=== PATIENT | male | born 1975 | race Caucasian/White ===

== ENCOUNTER 2018-10-23 15:27 | Inpatient (IN) ==
[2018-10-23 16:23] LABS: Basophils % 0.1 %; Eosinophils # 0.1 K/mcL (0.0-0.6); Eosinophils % 1.2 %; Hematocrit 37.9 % (37.5-50.1); Hemoglobin 12.4 g/dL (12.9-16.9); Immature Granulocytes % 0.1 % (0-4); Lymphocytes # 2.8 K/mcL (0.6-4.6); Lymphocytes % 41.4 %; Mean Corpuscular HGB Conc 32.7 g/dL (31.6-35.5); Mean Corpuscular Volume 97.9 fL (83.0-100.0); Mean Platelet Volume 9.5 fL (9.4-12.4); Monocytes # 0.6 K/mcL (0.0-1.3); Monocytes % 9.2 %; Neutrophils # 3.3 K/mcL (1.6-8.9); Platelet Count 247 K/mcL (140-400); Red Blood Count 3.87 M/mcL (4.19-5.50); Red Cell Distribution Width 13.2 % (11.5-14.5); White Blood Count 6.8 K/mcL (4.3-11.1)
[2018-10-23 16:41] LABS: Bilirubin,Urine Negative (Negative); Blood,Urine Negative (Negative); Clarity,Urine Clear (Clear); Color,Urine Yellow (Yellow); Glucose,Urine (UA) Normal (Normal); Ketones,Urine Negative (Negative); Leukocyte Esterase,Urine Negative (Negative); Nitrite,Urine Negative (Negative); PH,Urine 7.5 pH Units (5.0-8.0); Protein,Urine Negative (Neg-Trace); Specific Gravity,Urine 1.019 (1.010-1.025); Urobilinogen,Urine Normal (Normal)
[2018-10-23 16:45] LABS: Acetaminophen < 10 mcg/mL (10-20); BUN/Creatinine Ratio 14 (6-26); Blood Urea Nitrogen 12 mg/dL (6-20); Calcium 8.8 mg/dL (8.6-10.3); Carbon Dioxide 28 mEq/L (23-29); Chloride 107 mEq/L (98-107); Ethanol < 10 mg/dL (Less than 10); Glucose 87 mg/dL (70-105); Osmolality,Calculated 289 (280-300); Potassium 4.2 mEq/L (3.5-5.1); Salicylate < 2.5 mg/dL (15.0-30.0); Sodium 140 mEq/L (136-145); eGFR For African Americans > 60 (> 60); eGFR For Non-African Americans > 60 (> 60)
[2018-10-23 16:50] LABS: Amphetamine Screen,Urine Negative ng/mL (Cutoff=1000); Barbiturate Screen,Urine Negative ng/mL (Cutoff=200); Benzodiazepines Screen,Urine Negative ng/mL (Cutoff=200); Cannabinoid Screen,Urine Negative ng/mL (Cutoff = 50); Cocaine Screen,Urine Negative ng/mL (Cutoff= 300); Opiate Screen,Urine Negative ng/mL (Cutoff=300); Phencyclidine Screen,Urine Negative ng/mL (Cutoff=25)
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
--- NOTE | 2018-10-23 17:21 | Emergency Department Note ---
Disposition Clinical Impression: Methamphetamine abuse, Auditory hallucination, Visual hallucination Disposition: Admitted As Inpatient Condition: Good Time of Disposition: 17:05 General Adult HPI - General Chief complaint: ED Medical Clearance Stated complaint: Psych / Med Clearance Time Seen by Provider: 10/23/18 15:57 Source: patient Mode of arrival: ambulatory Limitations: no limitations - History of Present Illness Pain Scale: 0 - Related Data Home Medications Medication Instructions Recorded Confirmed Cholecalciferol (Vitamin D3) 1,000 units PO DAILY 10/23/18 10/23/18 [Vitamin D3] Divalproex (12 HR) [Depakote (12 250 mg PO TID 10/23/18 10/23/18 HR)] Ibuprofen 800 mg PO TID PRN 10/23/18 10/23/18 OLANZapine [Zyprexa] 5 mg PO DAILY 10/23/18 10/23/18 Propranolol [Inderal] 20 mg PO DAILY 10/23/18 10/23/18 rOPINIRole [Requip] 0.5 mg PO HS 10/23/18 10/23/18 Allergies Allergy/AdvReac Type Severity Reaction Status Date / Time No Known Allergies Allergy Verified 10/23/18 19:58 Constitutional: Denies: fever Cardiovascular: Denies: chest pain Respiratory: Denies: dyspnea Gastrointestinal: Denies: abdominal pain, nausea, vomiting, diarrhea Musculoskeletal: Denies: back pain Neurological: Denies: weakness Psychiatric: Reports: auditory hallucinations, visual hallucinations Past Medical History - Past Medical History Medical history: Reports: no medical history Psychiatric history: Reports: other - Social History Smoking Status: Current every day smoker Alcohol use: Reports: none Drug use: Reports: methamphetamine Physical Exam - General Limitations: no limitations General appearance: alert, in no apparent distress Course Vital Signs Temperature 97.6 F 10/23/18 15:30 Pulse Rate 94 10/23/18 15:30 Respiratory Rate 16 10/23/18 15:30 Blood Pressure 125/88 10/23/18 15:30 O2 Sat by Pulse Oximetry 100 10/23/18 15:30 Temperature 98.2 F 10/24/18 19:51 Pulse Rate 122 10/24/18 19:51 Respiratory Rate 16 10/24/18 19:51 Blood Pressure 136/75 10/24/18 19:51 O2 Sat by Pulse Oximetry 98 10/24/18 19:51 Oxygen Delivery Oxygen Delivery Room Air Medical Decision Making - Lab Data Result diagrams: 10/23/18 16:09 10/23/18 16:09 Lab Results 10/23/18 10/23/18 10/23/18 Range/Units 16:09 16:09 16:28 WBC 6.8 (4.3-11.1) K/mcL RBC 3.87 L (4.19-5.50) M/mcL Hgb 12.4 L (12.9-16.9) g/dL Hct 37.9 (37.5-50.1) % MCV 97.9 (83.0-100.0) fL MCH 32.0 (28.0-33.3) pg MCHC 32.7 (31.6-35.5) g/dL RDW 13.2 (11.5-14.5) % Plt Count 247 (140-400) K/mcL MPV 9.5 (9.4-12.4) fL Immature Gran % 0.1 (0-4) % Seg Neutrophils % 48.0 % Lymphocytes % 41.4 % Monocytes % 9.2 % Eosinophils % 1.2 % Basophils % 0.1 % Neutrophils # 3.3 (1.6-8.9) K/mcL Lymphocytes # 2.8 (0.6-4.6) K/mcL Monocytes # 0.6 (0.0-1.3) K/mcL Eosinophils # 0.1 (0.0-0.6) K/mcL Basophils # 0.0 (0.0-0.2) K/mcL Sodium 140 (136-145) mEq/L Potassium 4.2 (3.5-5.1) mEq/L Chloride 107 (98-107) mEq/L Carbon Dioxide 28 (23-29) mEq/L BUN 12 (6-20) mg/dL Creatinine 0.88 (0.70-1.30) mg/dL Est GFR ( Amer) > 60 (> 60) Est GFR (Non-Af Amer) > 60 (> 60) BUN/Creatinine Ratio 14 (6-26) Glucose 87 (70-105) mg/dL Calculated Osmolality 289 (280-300) Calcium 8.8 (8.6-10.3) mg/dL Urine Color Yellow (Yellow) Urine Clarity Clear (Clear) Urine pH 7.5 (5.0-8.0) pH Units Ur Specific [place] 1.019 (1.010-1.025) Urine Protein Negative (Neg-Trace) mg/dL Urine Glucose (UA) Normal (Normal) mg/dL Urine Ketones Negative (Negative) mg/dL Urine Blood Negative (Negative) Urine Nitrite Negative (Negative) Urine Bilirubin Negative (Negative) Urine Urobilinogen Normal (Normal) mg/dL Ur Leukocyte Esterase Negative (Negative) Salicylates < 2.5 L (15.0-30.0) mg/dL Urine Opiates Screen (Cacjzy=213) ng/mL Ur Buprenorphine Scrn (Cutoff=5) ng/mL Acetaminophen < 10 L (10-20) mcg/mL Ur Barbiturates Screen (Kumfir=682) ng/mL Ur Phencyclidine Scrn (Cutoff=25) ng/mL Ur Amphetamines Screen (Fiscek=0139) ng/mL U Benzodiazepines Scrn (Buxckf=736) ng/mL Urine Cocaine Screen (Cutoff= 300) ng/mL U Marijuana (THC) Screen (Cutoff = 50) ng/mL Ur Drug Screen Interp Ethyl Alcohol < 10 (Less than 10) mg/dL 10/23/18 Range/Units 16:28 WBC (4.3-11.1) K/mcL RBC (4.19-5.50) M/mcL Hgb (12.9-16.9) g/dL Hct (37.5-50.1) % MCV (83.0-100.0) fL MCH (28.0-33.3) pg MCHC (31.6-35.5) g/dL RDW (11.5-14.5) % Plt Count (140-400) K/mcL MPV (9.4-12.4) fL Immature Gran % (0-4) % Seg Neutrophils % % Lymphocytes % % Monocytes % % Eosinophils % % Basophils % % Neutrophils # (1.6-8.9) K/mcL Lymphocytes # (0.6-4.6) K/mcL Monocytes # (0.0-1.3) K/mcL Eosinophils # (0.0-0.6) K/mcL Basophils # (0.0-0.2) K/mcL Sodium (136-145) mEq/L Potassium (3.5-5.1) mEq/L Chloride (98-107) mEq/L Carbon Dioxide (23-29) mEq/L BUN (6-20) mg/dL Creatinine (0.70-1.30) mg/dL Est GFR ( Amer) (> 60) Est GFR (Non-Af Amer) (> 60) BUN/Creatinine Ratio (6-26) Glucose (70-105) mg/dL Calculated Osmolality (280-300) Calcium (8.6-10.3) mg/dL Urine Color (Yellow) Urine Clarity (Clear) Urine pH (5.0-8.0) pH Units Ur Specific [place] (1.010-1.025) Urine Protein (Neg-Trace) mg/dL Urine Glucose (UA) (Normal) mg/dL Urine Ketones (Negative) mg/dL Urine Blood (Negative) Urine Nitrite (Negative) Urine Bilirubin (Negative) Urine Urobilinogen (Normal) mg/dL Ur Leukocyte Esterase (Negative) Salicylates (15.0-30.0) mg/dL Urine Opiates Screen Negative (Ondupv=179) ng/mL Ur Buprenorphine Scrn Negative (Cutoff=5) ng/mL Acetaminophen (10-20) mcg/mL Ur Barbiturates Screen Negative (Hzizhm=820) ng/mL Ur Phencyclidine Scrn Negative (Cutoff=25) ng/mL Ur Amphetamines Screen Negative (Arapvt=4145) ng/mL U Benzodiazepines Scrn Negative (Dgurqs=965) ng/mL Urine Cocaine Screen Negative (Cutoff= 300) ng/mL U Marijuana (THC) Screen Negative (Cutoff = 50) ng/mL Ur Drug Screen Interp See Below Ethyl Alcohol (Less than 10) mg/dL Attestation Statement - Attestation Attestation: I examined this patient and my medical decision-making was reviewed with the Resident Physician. I agree with the documented findings, disposition and treatment plan as described except to the extent set forth below. Patient for [id number] [place] presents to emergency department with chief complaint of visual hallucinations the patient reports that he has not used meth in several days states is been isolated and is concerned that he see an thanks. Exam patient awake alert no acute distress patient does report that he is having visual hallucinations Medical decision management visual medical clear to evaluate about 1 and the patient accepted on a
[2018-10-23] MEDS ORDERED: Ibuprofen 400 MG TABLET PO PRN (17:48)
[2018-10-23] MEDS ORDERED: Mag Hydrox/Al Hydrox/Simeth 30 ML UDC PO PRN (17:48)
[2018-10-23] MEDS ORDERED: *HR* LORazepam 1 MG TABLET PO PRN (17:48)
[2018-10-23] MEDS ORDERED: Haloperidol Lactate 5 MG/ML VIAL IM PRN (17:48)
[2018-10-23] MEDS ORDERED: *HR* LORazepam 2 MG/ML VIAL IM PRN (17:48)
[2018-10-23] MEDS ORDERED: MOM Conc 10 ML UD.LIQ PO PRN (17:48)
[2018-10-23] MEDS ORDERED: Tdap (Boostrix) Vaccine 0.5 ML SYRINGE IM ONE (18:15)
[2018-10-24] MEDS: Nicotine 2 MG GUM BC PRN ×2 (08:46→17:37)
--- NOTE | 2018-10-24 13:31 | Psychiatry History & Physical ---
Date of Encounter: 10/24/18 Time of Encounter: 13:29 History of Present Illness Patient Stated Chief Complaint: Auditory hallucinations Medicare Admission Attestation: For traditional Medicare patients the provided hospital inpatient services are reasonable and necessary and in the case of services not specified as inpatient-only under 42 CFR 419.22 (n), that they are appropriately provided as inpatient services in accordance 42 CFR 412.3. For Critical [facility] the patient may reasonably be expected to be discharged or transferred to a hospital within 96 hours after admission to the Critical Access Hospital. Admitted From: Emergency Dept Plans for Post Hospital Care: Home History of Present Illness: Mr. Lee is a 43 year old male who presented to the ED complaining of aud itory hallucinations. He reports that he "destroyed his house" looking for the source of these voices so that he could "make them stop", as they were taunting him. He reports that he has been treated for depression in the past, and recently had a cheek swab performed, which showed that he had "the gene for bipolar disorder", which prompted his outpatient provider to start him on a medication for that disorder. He denies any history of psychiatric hospitalization. He reports that his mother has tried to get him to talk to a psychiatrist in the past, but states that he has not wanted to do that. Patient does have a history of IV methamphetamine use, and estimates that it has been ~10 days since he last used. He reports that he has had auditory hallucinations in the past, but does not notice a correlation with his drug use. He states that he has "heard voices" since he was a child, noting that when he was a kid, he always felt like the voices were "talking about me". He reports occasional visual hallucinations, but denies any tactile hallucinations. He denies thoughts of self-harm or suicide. He denies homicidal ideation, but notes that he did want to hurt the voices to make them stop. Family history is significant for completed suicide attempts in his father and uncle, though he states he is unaware of any official psychiatric diagnoses. Past Med Surg Social Fam HX - Past Medical History Medical history: no medical history - Past Psychiatric History Family History of Suicide: Completed Family Suicide History Details: Father and uncle both by suicide via gun. - Social History Smoking Status: Current every day smoker Smokeless Tobacco Status: No Alcohol use: none Drug use: methamphetamine - Family History Mother Name: Indu Mason Living Status: Still Living Hx Family Cardiac Disorders: No Hx Family Respiratory Disorders: No Hx Family Cancer: No Hx Family GI Disorders: No Hx Family Genitourinary Disorders: No Hx Family Endocrine Disorder: No Hx Family Musculoskeletal Disorders: No Hx Family Neuromuscular Disorders: No Hx Family Neurologic Disorders: No Hx Family HEENT Disorders: No Hx Family Autoimmune Disorders: No Hx Family Reproductive Disorders: No Hx Family Psychosocial Disorders: No Hx Family Medical Disorders: No Medications & Allergies Cholecalciferol (Vitamin D3) [Vitamin D3] 1,000 units PO DAILY 10/23/18 [History] Divalproex (12 HR) [Depakote (12 HR)] 250 mg PO TID 10/23/18 [History] Ibuprofen 800 mg PO TID PRN 10/23/18 [History] OLANZapine [Zyprexa] 5 mg PO DAILY 10/23/18 [History] Propranolol [Inderal] 20 mg PO DAILY 10/23/18 [History] rOPINIRole [Requip] 0.5 mg PO HS 10/23/18 [History] Allergy/AdvReac Type Severity Reaction Status Date / Time No Known Allergies Allergy Verified 10/23/18 19:58 Review of Systems Constitutional: Denies: fever, chills, weakness, weight change Cardiovascular: Denies: chest pain Respiratory: Denies: dyspnea Gastrointestinal: Denies: abdominal pain Musculoskeletal: Reports: joint pain (secondary to "destroying" his home) Integumentary: Denies: pruritus Neurological: Denies: headache, weakness, numbness Psychiatric: Reports: auditory hallucinations, visual hallucinations. Denies: suicidal ideation, homicidal ideation Exam - HEENT Head exam IM: Present: atraumatic, normal inspection, normocephalic Eye exam IM: Present: EOMI, normal appearance, PERRL ENT exam IM: Present: normal exam - Neurological Neurological exam: Present: CN II-XII intact (grossly intact on observation) - Respiratory Respiratory exam IM: Absent: accessory muscle use, respiratory distress - Extremities Extremities exam IM: Present: full ROM - Skin Skin exam IM: Present: abrasion (left elbow), dry, warm - Constitutional Vitals: Temp Pulse Resp BP Pulse Ox 98.4 F 107 20 133/83 100 10/24/18 09:00 10/24/18 09:00 10/24/18 09:00 10/24/18 09:00 10/24/18 09:00 General appearance: age & developmentally appropriate, well-nourished, average - Musculoskeletal Strength & Tone: normal for patient (grossly normal on evaluation) - Psychiatric Patient Orientation: Yes Person, Yes Time, Yes Place Level of alertness: Alert, Follows commands Behavior: calm, cooperative Psychomotor activity: Normal Eye Contact: Fleeting Contact Affect description: flat Speech Volume: Soft/Quiet Speech pattern: normal rate, mumbled Language & Vocabulary: consistent with education Thought Process: Logical, Linear Thought Content: No Suicidal ideation, No Homicidal ideation, No Overt delusions Perceptual Disturbances: No Auditory hallucinations, No Visual hallucinations, No Tactile hallucinations Attention Span Ability: Capable of Focused Attention Memory Description: Grossly Intact Patient Reliability: Questionable Historian Results - Drug Levels and Toxicology Drug Levels and Toxicology: Drug Levels and Toxicity 10/23/18 10/23/18 16:09 16:28 Urine Opiates Screen Negative Acetaminophen < 10 L Ur Barbiturates Screen Negative Ur Phencyclidine Scrn Negative Ur Amphetamines Screen Negative U Benzodiazepines Scrn Negative Urine Cocaine Screen Negative U Marijuana (THC) Screen Negative Ethyl Alcohol < 10 - Labs Labs: Laboratory Last Values WBC 6.8 K/mcL (4.3-11.1) 10/23/18 16:09 RBC 3.87 M/mcL (4.19-5.50) L 10/23/18 16:09 Hgb 12.4 g/dL (12.9-16.9) L 10/23/18 16:09 Hct 37.9 % (37.5-50.1) 10/23/18 16:09 MCV 97.9 fL (83.0-100.0) 10/23/18 16:09 MCH 32.0 pg (28.0-33.3) 10/23/18 16:09 MCHC 32.7 g/dL (31.6-35.5) 10/23/18 16:09 RDW 13.2 % (11.5-14.5) 10/23/18 16:09 Plt Count 247 K/mcL (140-400) 10/23/18 16:09 MPV 9.5 fL (9.4-12.4) 10/23/18 16:09 Immature Gran % 0.1 % (0-4) 10/23/18 16:09 Seg Neutrophils % 48.0 % 10/23/18 16:09 Lymphocytes % 41.4 % 10/23/18 16:09 Monocytes % 9.2 % 10/23/18 16:09 Eosinophils % 1.2 % 10/23/18 16:09 Basophils % 0.1 % 10/23/18 16:09 Neutrophils # 3.3 K/mcL (1.6-8.9) 10/23/18 16:09 Lymphocytes # 2.8 K/mcL (0.6-4.6) 10/23/18 16:09 Monocytes # 0.6 K/mcL (0.0-1.3) 10/23/18 16:09 Eosinophils # 0.1 K/mcL (0.0-0.6) 10/23/18 16:09 Basophils # 0.0 K/mcL (0.0-0.2) 10/23/18 16:09 Sodium 140 mEq/L (136-145) 10/23/18 16:09 Potassium 4.2 mEq/L (3.5-5.1) 10/23/18 16:09 Chloride 107 mEq/L (98-107) 10/23/18 16:09 Carbon Dioxide 28 mEq/L (23-29) 10/23/18 16:09 BUN 12 mg/dL (6-20) 10/23/18 16:09 Creatinine 0.88 mg/dL (0.70-1.30) 10/23/18 16:09 Est GFR ( Amer) > 60 (> 60) 10/23/18 16:09 Est GFR (Non-Af Amer) > 60 (> 60) 10/23/18 16:09 BUN/Creatinine Ratio 14 (6-26) 10/23/18 16:09 Glucose 87 mg/dL (70-105) 10/23/18 16:09 Calculated Osmolality 289 (280-300) 10/23/18 16:09 Calcium 8.8 mg/dL (8.6-10.3) 10/23/18 16:09 Urine Color Yellow (Yellow) 10/23/18 16:28 Urine Clarity Clear (Clear) 10/23/18 16:28 Urine pH 7.5 pH Units (5.0-8.0) 10/23/18 16:28 Ur Specific [place] 1.019 (1.010-1.025) 10/23/18 16:28 Urine Protein Negative mg/dL (Neg-Trace) 10/23/18 16:28 Urine Glucose (UA) Normal mg/dL (Normal) 10/23/18 16:28 Urine Ketones Negative mg/dL (Negative) 10/23/18 16:28 Urine Blood Negative (Negative) 10/23/18 16:28 Urine Nitrite Negative (Negative) 10/23/18 16:28 Urine Bilirubin Negative (Negative) 10/23/18 16:28 Urine Urobilinogen Normal mg/dL (Normal) 10/23/18 16:28 Ur Leukocyte Esterase Negative (Negative) 10/23/18 16:28 Salicylates < 2.5 mg/dL (15.0-30.0) L 10/23/18 16:09 Urine Opiates Screen Negative ng/mL (Lcykkq=105) 10/23/18 16:28 Ur Buprenorphine Scrn Negative ng/mL (Cutoff=5) 10/23/18 16:28 Acetaminophen < 10 mcg/mL (10-20) L 10/23/18 16:09 Ur Barbiturates Screen Negative ng/mL (Byyzvv=514) 10/23/18 16:28 Ur Phencyclidine Scrn Negative ng/mL (Cutoff=25) 10/23/18 16:28 Ur Amphetamines Screen Negative ng/mL (Bgdmou=8547) 10/23/18 16:28 U Benzodiazepines Scrn Negative ng/mL (Bhimzd=424) 10/23/18 16:28 Urine Cocaine Screen Negative ng/mL (Cutoff= 300) 10/23/18 16:28 U Marijuana (THC) Screen Negative ng/mL (Cutoff = 50) 10/23/18 16:28 Ur Drug Screen Interp See Below 10/23/18 16:28 Ethyl Alcohol < 10 mg/dL (Less than 10) 10/23/18 16:09 Assessment and Plan (1) Unspecified psychosis Current visit: Yes Status: Acute Plan: Admit inpatient for safety and stabilization, Close observation, Suicide Precautions per unit protocol, Encourage participation in unit milieu, Group Therapy, Monitor sleep, Monitor appetite Additional Plan: Patient presented to the ED yesterday after "tearing up the house" looking for the person responsible for his auditory hallucinations, which he describes as "taunting him". He reports that this has happened before, though he is unclear how frequently he experiences these. He also endorses occasional visual hallucinations. With his last reported methamphetamine use ~10 days ago, it is unclear if his psychosis is originating from that or from an nderlying psychiatric disorder, which cannot be excluded at this time. Continue monitoring patient, with medication initiation per attending psychiatrist, Dr. Yi. Qualifiers: Psychosis type: unspecified psychosis type Qualified Code(s): F29 - Unspecified psychosis not due to a substance or known physiological condition (2) Methamphetamine abuse Current visit: Yes Status: Acute Additional Plan: History of methamphetamine abuse, with last use approximately 10 days ago. - Attending Attestation I examined this patient and my medical decision-making was reviewed with the Resident Physician. I agree with the documented findings, disposition and treatment plan as described except to the extent set forth below. Client does not currently present as psychotic and denies hearing voices since being admitted to . It is possible that hallucinations were all substance induced. Although client denies SI, intent, or plan and has no history of hospitalizations, it sounds like he has experienced significant depressive episodes in his past. He talks about isolating in his trailer, not leaving his bed, and not eating or showering for days. May have a genuine psychotic depression history in addition to drug use. Client states he was formerly addicted to opiates and cocaine. Became sober approx six years ago. Relapsed with meth last June and has been using it fairly consistently since. Client states he has tried antidepressants in the past when linked with a Suboxone clinic but does not know what they were. Was recently at the [facility] and did a DNA swab which reportedly showed Bipolar Disorder. While there he was started on Zyprexa and Depakote but client reports he has not been taking them consistently. Client admits to anger but no clear manic history. Suspect he is more depressed with substance abuse. Will plan to continue Zyprexa for now to insure AH improve and add an SSRI to help with mood.
[2018-10-24] MEDS: OLANZapine 5 MG TAB.RAPDIS PO SCH (20:27)
[2018-10-25] MEDS: Nicotine 2 MG GUM BC PRN ×2 (09:01→17:07)
--- NOTE | 2018-10-25 09:24 | Psychiatry Progress Note ---
Date of Encounter: 10/25/18 Time of Encounter: 09:20 Subjective Interval history: Client reports he is feeling better. Able to sleep last night. Not hearing AH anymore. Affect is brighter today. Smiling some. After meeting with this tag writer yesterday he attended all offered groups. Has been pleasant and cooperative on the unit. Expressing interest in AOD treatment. Will give him information on treatment centers in the area. Client is interested in something residential as he destroyed his trailer while psychotic and his mother reported it is now uninhabitable. Client cannot stay with his mother as his stepfather has said client cannot live with them. Client will attempt to contact AOD treatment centers this weekend but is aware it will be difficult to make a referral until Saturday when staff return. Review of Systems Constitutional: Denies: fever, chills, weakness, weight change Eyes: Denies: eye pain, vision change Ears, Nose, Throat: Denies: ear pain, throat pain, dental pain, hearing loss, congestion Cardiovascular: Denies: chest pain, palpitations, dyspnea on exertion Respiratory: Denies: cough, dyspnea, wheezes Gastrointestinal: Denies: abdominal pain, nausea, vomiting, diarrhea, constipation Musculoskeletal: Reports: back pain, myalgia Neurological: Reports: other Psychiatric: Reports: auditory hallucinations, visual hallucinations. Denies: suicidal ideation, homicidal ideation Results - Vital Signs Vital Signs: Temp Pulse Resp BP Pulse Ox 98.2 F 122 16 136/75 98 10/24/18 19:51 10/24/18 19:51 10/24/18 19:51 10/24/18 19:51 10/24/18 19:51 Assessment and Plan (1) Unspecified psychosis Current visit: Yes Status: Acute Plan: Continue hospitalization, Close observation, Suicide Precautions per unit protocol, Encourage participation in unit milieu, Group Therapy, Monitor sleep, Monitor appetite Risks, benefits, side effects, alternatives discussed w/pt: Yes Patient agreeable to treatment: Yes Qualifiers: Psychosis type: unspecified psychosis type Qualified Code(s): F29 - Unspecified psychosis not due to a substance or known physiological condition (2) Methamphetamine abuse Current visit: Yes Status: Acute Plan: Continue hospitalization, Close observation, Suicide Precautions per unit protocol, Encourage participation in unit milieu, Group Therapy, Monitor sleep, Monitor appetite Risks, benefits, side effects, alternatives discussed w/pt: Yes Patient agreeable to treatment: Yes Consult Discharge Plan - Plan Referrals: NONE,PCP [Primary Care Provider] - Psychiatry Exam - Constitutional Vitals: Temp Pulse Resp BP Pulse Ox 98.2 F 122 16 136/75 98 10/24/18 19:51 10/24/18 19:51 10/24/18 19:51 10/24/18 19:51 10/24/18 19:51 General appearance: age & developmentally appropriate, well-groomed, well- nourished - Musculoskeletal Gait: normal Station: relaxed Strength & Tone: normal for patient - Psychiatric Patient Orientation: Yes Person, Yes Time, Yes Place Level of alertness: Alert Behavior: calm, cooperative Psychomotor activity: Normal Eye Contact: Maintains Eye Contact Mood Description: Depressed Affect description: congruent with mood Speech Volume: Normal Speech pattern: normal rate, normal rhythm, normal tone, fluent, spontaneous Language & Vocabulary: consistent with education Thought Process: Linear, Goal Oriented Thought Content: No Suicidal ideation, No Homicidal ideation, No Overt delusions Perceptual Disturbances: No Auditory hallucinations, No Visual hallucinations Attention Span Ability: Capable of Focused Attention Memory Description: Grossly Intact Patient Reliability: Reliable Historian Fund of knowledge: Yes abstraction ability, Yes aware of current events Intelligence Estimate: Average Judgment: Fair Insight: Partial
[2018-10-25] MEDS: Ibuprofen 800 MG TABLET PO PRN (17:07)
[2018-10-25] MEDS: Neosporin OINT 15 GM TUBE TP SCH ×2 (17:08→22:27)
[2018-10-25] MEDS: rOPINIRole 0.25 MG TABLET PO SCH (20:28)
[2018-10-25] MEDS: OLANZapine 5 MG TAB.RAPDIS PO SCH (20:28)
[2018-10-25] MEDS: traZODone 50 MG TABLET PO PRN (20:28)
--- NOTE | 2018-10-26 10:04 | Psychiatry Progress Note ---
Date of Encounter: 10/26/18 Time of Encounter: 10:00 Subjective Interval history: Client seems to be doing better. Eating and sleeping well. States his mood is good. Looks depressed but able to smile without issue. Stays to himself but interacts appropriately when approached. Reports he heard voices very briefly when in the shower last night but otherwise has not been bothered by AH since coming to the hospital. Still wants to go to a residential rehab program. Given a list of residential rehabs by nursing and client intends to reach out to some of them today. Being Saturday he is unlikely to have much success but if he is unable to make any connections today staff will be here to help make referrals tomorrow. Client is eager to talk with psychiatric social worker supervisor to discuss exactly what his options are given his insurance. Review of Systems Constitutional: Denies: fever, chills, weakness, weight change Eyes: Denies: eye pain, vision change Ears, Nose, Throat: Denies: ear pain, throat pain, dental pain, hearing loss, congestion Cardiovascular: Denies: chest pain, palpitations, dyspnea on exertion Respiratory: Denies: cough, dyspnea, wheezes Gastrointestinal: Denies: abdominal pain, nausea, vomiting, diarrhea, constipation Musculoskeletal: Denies: joint swelling, joint pain Neurological: Denies: headache, weakness, numbness, memory loss Psychiatric: Reports: auditory hallucinations, visual hallucinations. Denies: suicidal ideation, homicidal ideation Results - Vital Signs Vital Signs: Temp Pulse Resp BP Pulse Ox 97.3 F L 108 18 144/81 97 10/25/18 19:52 10/25/18 19:52 10/25/18 19:52 10/25/18 19:52 10/25/18 19:52 Assessment and Plan (1) Unspecified psychosis Current visit: Yes Status: Acute Plan: Continue hospitalization, Close observation, Suicide Precautions per unit protocol, Encourage participation in unit milieu, Group Therapy, Monitor sleep, Monitor appetite Risks, benefits, side effects, alternatives discussed w/pt: Yes Patient agreeable to treatment: Yes Qualifiers: Psychosis type: unspecified psychosis type Qualified Code(s): F29 - Unspecified psychosis not due to a substance or known physiological condition (2) Methamphetamine abuse Current visit: Yes Status: Acute Plan: Continue hospitalization, Close observation, Suicide Precautions per unit protocol, Encourage participation in unit milieu, Group Therapy, Monitor sleep, Monitor appetite Risks, benefits, side effects, alternatives discussed w/pt: Yes Patient agreeable to treatment: Yes Consult Discharge Plan - Plan Referrals: NONE,PCP [Primary Care Provider] - Psychiatry Exam - Constitutional Vitals: Temp Pulse Resp BP Pulse Ox 97.3 F L 108 18 144/81 97 10/25/18 19:52 10/25/18 19:52 10/25/18 19:52 10/25/18 19:52 10/25/18 19:52 General appearance: age & developmentally appropriate, well-groomed, well- nourished - Musculoskeletal Gait: normal Station: relaxed Strength & Tone: normal for patient - Psychiatric Patient Orientation: Yes Person, Yes Time, Yes Place Level of alertness: Alert Behavior: calm, cooperative Psychomotor activity: Normal Eye Contact: Maintains Eye Contact Mood Description: Depressed Affect description: blunted Speech Volume: Normal Speech pattern: normal rate, normal rhythm, normal tone, fluent, spontaneous Language & Vocabulary: consistent with education Thought Process: Linear, Goal Oriented Thought Content: No Suicidal ideation, No Homicidal ideation, No Overt delusions Perceptual Disturbances: No Reacting to internal stimuli, Yes Auditory hallucinations, No Visual hallucinations Attention Span Ability: Capable of Focused Attention Memory Description: Grossly Intact Patient Reliability: Reliable Historian Fund of knowledge: Yes abstraction ability, Yes aware of current events Intelligence Estimate: Average Judgment: Fair Insight: Partial
[2018-10-26] MEDS: Neosporin OINT 15 GM TUBE TP SCH ×3 (10:14→21:25)
[2018-10-26] MEDS: Nicotine 2 MG GUM BC PRN ×3 (13:46→22:46)
[2018-10-26] MEDS: Ibuprofen 800 MG TABLET PO PRN (14:49)
[2018-10-26] MEDS: rOPINIRole 0.25 MG TABLET PO SCH (21:22)
[2018-10-26] MEDS: traZODone 50 MG TABLET PO PRN (21:23)
[2018-10-26] MEDS: OLANZapine 5 MG TAB.RAPDIS PO SCH (21:23)
[2018-10-26] MEDS: hydrOXYzine pamoate 25 MG CAPSULE PO PRN (21:23)
[2018-10-27] MEDS: Ibuprofen 800 MG TABLET PO PRN (07:50)
--- NOTE | 2018-10-27 09:56 | Psychiatry Progress Note ---
Date of Encounter: 10/27/18 Time of Encounter: 09:10 Subjective Interval history: She is tolerating increase in Zoloft. He continues to have some sad mood with decreased interest and hopelessness. Though he is optimistic that now the social workers back he will be able to be linked with a long-term substance use program. He is willing to sign in voluntarily to complete additional treatment and continue to work on linkage. He is mostly withdrawn to his room. He does not appear to be responding to internal stimuli and says that he only heard voices once yesterday. Review of Systems Psychiatric: Reports: depression, auditory hallucinations. 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 Encourage group attendance. Therapists working on linkage to substance use programming. Risks, benefits, side effects, alternatives discussed w/pt: Yes Patient agreeable to treatment: Yes Consult Discharge Plan - Plan Referrals: NONE,PCP [Primary Care Provider] - Psychiatry Exam - Constitutional Vitals: Temp Pulse Resp BP Pulse Ox 99.0 F 102 18 117/85 97 10/26/18 21:00 10/26/18 21:00 10/26/18 21:00 10/26/18 21:00 10/26/18 21:00 General appearance: age & developmentally appropriate - Musculoskeletal Station: stooped Strength & Tone: mild weakness - Psychiatric Patient Orientation: Yes Person, Yes Time, Yes Place, Yes Circumstance Level of alertness: Alert Behavior: withdrawn Psychomotor activity: Slowed Eye Contact: Minimal Contact Mood Description: Depressed Patient description of mood: Sad Affect description: dysphoric Speech Volume: Soft/Quiet Speech pattern: normal rate, normal rhythm Language & Vocabulary: consistent with education Thought Process: Linear, Goal Oriented Thought Content: No Suicidal ideation, No Homicidal ideation Perceptual Disturbances: Yes Auditory hallucinations Attention Span Ability: Capable of Focused Attention Memory Description: Grossly Intact Patient Reliability: Reliable Historian Fund of knowledge: Yes abstraction ability, Yes aware of current events Intelligence Estimate: Average Judgment: Limited Insight: Partial
[2018-10-27] MEDS: Neosporin OINT 15 GM TUBE TP SCH ×3 (10:01→21:41)
[2018-10-27] MEDS: Nicotine 2 MG GUM BC PRN ×2 (12:53→21:38)
[2018-10-27] MEDS: OLANZapine 5 MG TAB.RAPDIS PO SCH (21:36)
[2018-10-27] MEDS: rOPINIRole 0.25 MG TABLET PO SCH (21:37)
[2018-10-27] MEDS: hydrOXYzine pamoate 25 MG CAPSULE PO PRN (21:38)
[2018-10-27] MEDS: traZODone 50 MG TABLET PO PRN (21:38)
[2018-10-28] MEDS: Neosporin OINT 15 GM TUBE TP SCH ×3 (09:40→22:10)
--- NOTE | 2018-10-28 09:55 | Psychiatry Progress Note ---
Date of Encounter: 10/28/18 Time of Encounter: 08:40 Subjective Interval history: Patient says he is doing well with the medications. He denied suicidal or homicidal thoughts, ideations, or plans. He denied hallucinations. He spends a lot of time in his room though he comes out for meals and is caring for his ADLs. He is waiting on placement in a rehabilitation facility. Review of Systems Psychiatric: Reports: depression. Denies: suicidal ideation, homicidal ideation, auditory hallucinations Results - Vital Signs Vital Signs: Temp Pulse Resp BP Pulse Ox 98.8 F 66 16 115/75 97 10/27/18 20:24 10/27/18 20:24 10/27/18 20:24 10/27/18 20:24 10/27/18 20:24 Assessment and Plan (1) Other stimulant abuse with stimulant-induced mood disorder Current visit: Yes Status: Acute Plan: Continue hospitalization, Close observation, Suicide Precautions per unit protocol, Encourage participation in unit milieu, Group Therapy, Monitor sleep, Monitor appetite Additional Plan: Into any current medications. Encourage group therapy. Awaiting placement for rehabilitation Risks, benefits, side effects, alternatives discussed w/pt: Yes Patient agreeable to treatment: Yes Consult Discharge Plan - Plan Referrals: [facility] [Other] [facility] [Outside] Psychiatry Exam - Constitutional Vitals: Temp Pulse Resp BP Pulse Ox 98.8 F 66 16 115/75 97 10/27/18 20:24 10/27/18 20:24 10/27/18 20:24 10/27/18 20:24 10/27/18 20:24 General appearance: age & developmentally appropriate, well-groomed, well- nourished - Musculoskeletal Gait: normal Station: relaxed Strength & Tone: normal for patient - Psychiatric Patient Orientation: Yes Person, Yes Time, Yes Place, Yes Circumstance Level of alertness: Alert Behavior: calm, cooperative Psychomotor activity: Normal Eye Contact: Maintains Eye Contact Mood Description: Euthymic/stable Patient description of mood: Okay Affect description: congruent with mood, full range Speech Volume: Normal Speech pattern: normal rate, normal rhythm, normal tone, fluent, spontaneous Language & Vocabulary: consistent with education Thought Process: Linear, Goal Oriented Thought Content: No Suicidal ideation, No Homicidal ideation, No Overt delusions Perceptual Disturbances: No Auditory hallucinations, No Visual hallucinations Attention Span Ability: Capable of Focused Attention Memory Description: Grossly Intact Patient Reliability: Reliable Historian Fund of knowledge: Yes abstraction ability, Yes aware of current events Intelligence Estimate: Average Judgment: Fair Insight: Partial
[2018-10-28] MEDS: Ibuprofen 800 MG TABLET PO PRN (13:34)
[2018-10-28] MEDS: traZODone 50 MG TABLET PO PRN (22:06)
[2018-10-28] MEDS: OLANZapine 5 MG TAB.RAPDIS PO SCH (22:06)
[2018-10-28] MEDS: rOPINIRole 0.25 MG TABLET PO SCH (22:06)
[2018-10-28] MEDS: hydrOXYzine pamoate 25 MG CAPSULE PO PRN (22:06)
[2018-10-28] MEDS: Nicotine 2 MG GUM BC PRN (22:09)
[2018-10-29] MEDS: Ibuprofen 800 MG TABLET PO PRN ×3 (01:30→21:37)
[2018-10-29] MEDS: Neosporin OINT 15 GM TUBE TP SCH ×3 (09:00→21:38)
--- NOTE | 2018-10-29 10:10 | Psychiatry Progress Note ---
Date of Encounter: 10/29/18 Time of Encounter: 09:30 Subjective Interval history: Patient is doing well. Mood is stable. No side effects from medications. He is awaiting a bed at [facility]. He attends some groups. Review of Systems Psychiatric: Reports: depression. Denies: suicidal ideation, homicidal ideation, auditory hallucinations Results - Vital Signs Vital Signs: Temp Pulse Resp BP Pulse Ox 97.5 F L 94 16 150/83 100 10/29/18 09:00 10/29/18 09:00 10/29/18 09:00 10/29/18 09:00 10/29/18 09:00 Assessment and Plan (1) Other stimulant abuse with stimulant-induced mood disorder Current visit: Yes Status: Acute Plan: Continue hospitalization, Close observation, Suicide Precautions per unit protocol, Encourage participation in unit milieu, Group Therapy, Monitor sleep, Monitor appetite Additional Plan: Continue current medications, encourage group therapy, therapist working on linkage. Risks, benefits, side effects, alternatives discussed w/pt: Yes Patient agreeable to treatment: Yes Consult Discharge Plan - Plan Referrals: [facility] [Other] [facility] [Outside] Psychiatry Exam - Constitutional Vitals: Temp Pulse Resp BP Pulse Ox 97.5 F L 94 16 150/83 100 10/29/18 09:00 10/29/18 09:00 10/29/18 09:00 10/29/18 09:00 10/29/18 09:00 General appearance: age & developmentally appropriate, well-groomed, well- nourished - Musculoskeletal Gait: normal Station: relaxed Strength & Tone: normal for patient - Psychiatric Patient Orientation: Yes Person, Yes Time, Yes Place Level of alertness: Alert Behavior: calm, cooperative Psychomotor activity: Normal Eye Contact: Maintains Eye Contact Mood Description: Euthymic/stable Patient description of mood: Fine Affect description: congruent with mood, full range Speech Volume: Normal Speech pattern: normal rate, normal rhythm, normal tone, fluent, spontaneous Language & Vocabulary: consistent with education Thought Process: Linear, Goal Oriented Thought Content: No Suicidal ideation, No Homicidal ideation, No Overt delusions Perceptual Disturbances: No Auditory hallucinations, No Visual hallucinations Attention Span Ability: Capable of Focused Attention Memory Description: Grossly Intact Patient Reliability: Reliable Historian Fund of knowledge: Yes abstraction ability, Yes aware of current events Intelligence Estimate: Average Judgment: Good Insight: Full
[2018-10-29] MEDS: Nicotine 2 MG GUM BC PRN (14:31)
[2018-10-29] MEDS: traZODone 50 MG TABLET PO PRN (21:09)
[2018-10-29] MEDS: hydrOXYzine pamoate 25 MG CAPSULE PO PRN (21:10)
[2018-10-29] MEDS: rOPINIRole 0.25 MG TABLET PO SCH (21:10)
[2018-10-29] MEDS: OLANZapine 5 MG TAB.RAPDIS PO SCH (21:10)
[2018-10-30] MEDS: Ibuprofen 800 MG TABLET PO PRN ×2 (09:27→22:04)
[2018-10-30] MEDS: Neosporin OINT 15 GM TUBE TP SCH ×3 (10:27→23:28)
--- NOTE | 2018-10-30 10:43 | Psychiatry Progress Note ---
Date of Encounter: 10/30/18 Time of Encounter: 09:00 Subjective Interval history: Patient is still waiting for a better [facility]. [facility] requested additional information from him that she needs to fill out today. He is doing well from a medical and mental health standpoint. No suicidal or homicidal thoughts, ideations or plans. Review of Systems Psychiatric: Reports: depression. Denies: suicidal ideation, homicidal ideation, auditory hallucinations Results - Vital Signs Vital Signs: Temp Pulse Resp BP Pulse Ox 98.8 F 101 18 150/83 98 10/29/18 21:00 10/29/18 21:00 10/29/18 21:00 10/29/18 21:00 10/29/18 21:00 Assessment and Plan (1) Other stimulant abuse with stimulant-induced mood disorder Current visit: Yes Status: Acute Plan: Continue hospitalization, Close observation, Suicide Precautions per unit protocol, Encourage participation in unit milieu, Group Therapy, Monitor sleep, Monitor appetite Additional Plan: Continue current medications. Encourage group therapy which she has been doing. Awaiting placement at [facility] . Risks, benefits, side effects, alternatives discussed w/pt: Yes Patient agreeable to treatment: Yes Consult Discharge Plan - Plan Referrals: [facility] [Other] [facility] [Outside] Psychiatry Exam - Constitutional Vitals: Temp Pulse Resp BP Pulse Ox 98.8 F 101 18 150/83 98 10/29/18 21:00 10/29/18 21:00 10/29/18 21:00 10/29/18 21:00 10/29/18 21:00 General appearance: age & developmentally appropriate - Musculoskeletal Gait: normal Station: relaxed Strength & Tone: normal for patient - Psychiatric Patient Orientation: Yes Person, Yes Time, Yes Place, Yes Circumstance Level of alertness: Alert Behavior: calm, cooperative Psychomotor activity: Normal Eye Contact: Maintains Eye Contact Mood Description: Euthymic/stable Patient description of mood: Good Affect description: congruent with mood, full range Speech Volume: Normal Speech pattern: normal rate, normal rhythm, normal tone, fluent, spontaneous Language & Vocabulary: consistent with education Thought Process: Linear, Goal Oriented Thought Content: No Suicidal ideation, No Homicidal ideation, No Overt delusions Perceptual Disturbances: No Auditory hallucinations, No Visual hallucinations Attention Span Ability: Capable of Focused Attention Memory Description: Grossly Intact Patient Reliability: Reliable Historian Fund of knowledge: Yes abstraction ability, Yes aware of current events Intelligence Estimate: Average Judgment: Good Insight: Full
[2018-10-30 17:02] LABS: Hepatitis B Surface Antigen Nonreactive (Nonreactive)
[2018-10-30 17:33] LABS: Hepatitis B Core IgM Nonreactive (Nonreactive)
[2018-10-30 17:35] LABS: Hepatitis A Antibody IgM Nonreactive (Nonreactive)
[2018-10-30 20:35] LABS: Hepatitis C Virus Antibody Reactive (Nonreactive)
[2018-10-30] MEDS: rOPINIRole 0.25 MG TABLET PO SCH (22:02)
[2018-10-30] MEDS: OLANZapine 5 MG TAB.RAPDIS PO SCH (22:02)
[2018-10-30] MEDS: hydrOXYzine pamoate 25 MG CAPSULE PO PRN (22:02)
[2018-10-30] MEDS: traZODone 50 MG TABLET PO PRN (22:03)
[2018-10-31] MEDS: Neosporin OINT 15 GM TUBE TP SCH ×3 (09:35→21:26)
--- NOTE | 2018-10-31 10:39 | Discharge Summary ---
Date of Encounter: 10/31/18 Time of Encounter: 10:00 Diagnosis - Discharge Diagnosis (1) Other stimulant abuse with stimulant-induced mood disorder Status: Acute Medications - Discharge Medications Prescriptions: Divalproex (12 HR) [Depakote (12 HR)] 250 mg PO TID #45 tablet. rOPINIRole [Requip] 0.5 mg PO HS #15 tablet traZODone [TraZODone] 50 mg PO HS PRN #15 tablet PRN Reason: Insomnia hydrOXYzine pamoate [Vistaril] 25 mg PO TID PRN #45 capsule PRN Reason: Anxiety Sertraline [Zoloft] 100 mg PO DAILY #15 tablet OLANZapine [Zyprexa] 5 mg PO DAILY #15 tablet Cholecalciferol (Vitamin D3) [Vitamin D3] 1,000 units PO DAILY 10/23/18 [History] Ibuprofen 800 mg PO TID PRN 10/23/18 [History] Divalproex (12 HR) [Depakote (12 HR)] 250 mg PO TID #45 tablet. 10/31/18 [Rx] Luis Enrique/Poly/Tammy OINT [Triple Antibiotic Ointment] 1 appl TP TID tube 10/31/18 [Rx] OLANZapine [Zyprexa] 5 mg PO DAILY #15 tablet 10/31/18 [Rx] Sertraline [Zoloft] 100 mg PO DAILY #15 tablet 10/31/18 [Rx] hydrOXYzine pamoate [Vistaril] 25 mg PO TID PRN #45 capsule 10/31/18 [Rx] rOPINIRole [Requip] 0.5 mg PO HS #15 tablet 10/31/18 [Rx] traZODone [TraZODone] 50 mg PO HS PRN #15 tablet 10/31/18 [Rx] Allergy/AdvReac Type Severity Reaction Status Date / Time No Known Allergies Allergy Verified 10/23/18 19:58 Results Procedures and tests throughout hospitalization: Completed Lab Orders Category Date Time Status Acetaminophen Stat Lab 10/23/18 16:09 Completed Basic Metabolic Panel Stat Lab 10/23/18 16:09 Completed Complete Blood Count [HEME] Stat Lab 10/23/18 16:09 Completed Drug Screen, Urine [UCHEM] Stat Lab 10/23/18 16:28 Completed Ethanol Stat Lab 10/23/18 16:09 Completed Salicylate Stat Lab 10/23/18 16:09 Completed Urinalysis reflex Microscopic [URIN] Stat Lab 10/23/18 16:28 Completed Viral hepatitis panel [Hepatitis Prof.(Routine A,B,C)] Lab 10/30/18 15:26 Completed Stat Provider Date of admission: 10/23/18 17:33 Primary care physician: PCP NONE Discharging clinician: Teri Arguelles Psychiatry Exam - Constitutional Vitals: Temp Pulse Resp BP Pulse Ox 97.9 F 76 19 110/67 99 10/31/18 09:00 10/31/18 09:00 10/31/18 09:00 10/31/18 09:00 10/31/18 09:00 General appearance: age & developmentally appropriate, well-groomed, well- nourished - Musculoskeletal Gait: normal Station: relaxed Strength & Tone: normal for patient - Psychiatric Patient Orientation: Yes Person, Yes Time, Yes Place, Yes Circumstance Level of alertness: Alert Behavior: calm, cooperative Psychomotor activity: Normal Eye Contact: Maintains Eye Contact Mood Description: Euthymic/stable Patient description of mood: Good Affect description: congruent with mood, full range Speech Volume: Normal Speech pattern: normal rate, normal rhythm, normal tone, fluent, spontaneous Language & Vocabulary: consistent with education Thought Process: Linear, Goal Oriented Thought Content: No Suicidal ideation, No Homicidal ideation, No Overt delusions Perceptual Disturbances: No Auditory hallucinations, No Visual hallucinations Attention Span Ability: Capable of Focused Attention Memory Description: Grossly Intact Patient Reliability: Reliable Historian Fund of knowledge: Yes abstraction ability, Yes aware of current events Intelligence Estimate: Average Judgment: Good Insight: Full Hospital Course Hospital course: Mr. Lee is a 43 year old male who was admitted for mood lability and psychosis. He was restarted on his Zyprexa. Depakote was started. He had as needed Vistaril and trazodone for insomnia and anxiety.Patient was educated of diagnosis and the risk-benefit side effects of this alternative treatment options and was monitored for responsiveness and side effects. Mood anxiety sleep and appetite interest improved as did future orientation. Self-harm thoughts subsided, thinking cleared, psychosis resolved, and mood stabilized. Patient was able to attend both individual and group therapy sessions as well as meet with the psychiatrist daily and urged to discuss any medication or treatment issues or other concerns. The patient was educated primarily by verbal means about their diagnosis and manifestations in their life. The option for treatment including group and individual therapy programming was offered to the patient in addition to the use of medications with all their potential risks, benefits, and side effects as well as the risks of not taking medication and non-adhereance were discussed with the patient at length. The patient was given the opportunity to ask questions and was noted to participate in the treatment in the planning process. The patient felt ready and eager to be discharged from the inpatient psychiatric unit to continue on with treatment as an outpatient. The patient agreed that is they were safe for this disposition. The patient was considered to be able to participate in informed consent and decision making with respect to medical, legal, and financial issues of the time of discharge. At the time of discharge the patient adamantly denied any concerns for lethality including suicidal or homicidal thoughts ideations or plans and was future oriented toward ongoing mental health care, medical follow-up and sobriety. Time spent discussing smoking cessation with patient: 3 to 10 minutes Does patient wish to continue nicotine replacement upon disc: No - Time Spent with Patient Total time spent providing and/or coordinating discharge services: 20 Less than 30 minutes Specific discharge activities: Interval history reviewed. Available labs reviewed . Psychotherapy provided. Patient had an opportunity to ask questions and address concerns. Patient was in agreement with the treatment plan. The risks benefits and side effects of medications were discussed with the patient, including alternatives and treatment. The patient was educated on the abstaining from any alcohol or illicit substances, following up with all scheduled appointments, and taking all medications as prescribed. The patient was educated on 90 meetings in 90 days and to find a sponsor. Assessment and Plan - Patient/Caregiver Discharge Instructions Activity: resume usual activities as tolerated Diet: regular diet Additional Instructions: Continue current medications. Follow up with outpatient mental health. Encourage continued therapy in a group or individual setting. The patient was discharged to home. - Follow up Plan Follow up with: [facility] [Other] [facility] [Outside] Functional capacity at discharge: independent ambulation Overall status at discharge: Stable Disposition: Home, Self-Care Quality - Multiple Antipsychotics Patient discharged on 2 or more antipsychotic medications: No Procedures - Procedures Procedures: Medication Management, Crisis Stabilization, Supportive Therapy, Group Therapy, Psychoeducational Therapy
[2018-10-31] MEDS: Ibuprofen 800 MG TABLET PO PRN ×2 (14:05→22:17)
[2018-10-31] MEDS: rOPINIRole 0.25 MG TABLET PO SCH (21:25)
[2018-10-31] MEDS: OLANZapine 5 MG TAB.RAPDIS PO SCH (21:26)
[2018-10-31] MEDS: hydrOXYzine pamoate 25 MG CAPSULE PO PRN (21:27)
[2018-10-31] MEDS: traZODone 50 MG TABLET PO PRN (21:27)
[2018-10-31] MEDS: Nicotine 2 MG GUM BC PRN (21:34)
--- NOTE | 2018-11-01 10:06 | Psychiatry Progress Note ---
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 It was unclear if they just do not have a bed. He still is doing well from a clinical standpoint. Review of Systems Psychiatric: Denies: suicidal ideation, homicidal ideation, auditory hallucinations Results - Vital Signs Vital Signs: Temp Pulse Resp BP Pulse Ox 98.1 F 90 16 112/73 98 11/01/18 09:00 11/01/18 09:00 11/01/18 09:00 11/01/18 09:00 11/01/18 09:00 Assessment and Plan (1) Other stimulant abuse with stimulant-induced mood disorder Current visit: Yes Status: Acute Plan: Continue hospitalization, Close observation, Suicide Precautions per unit protocol, Encourage participation in unit milieu, Group Therapy, Monitor sleep, Monitor appetite Additional Plan: Still awaiting placement. Risks, benefits, side effects, alternatives discussed w/pt: Yes Patient agreeable to treatment: Yes Consult Discharge Plan - Plan Instructions: Brief Psychotic Disorder (DC) Additional Instructions: Continue current medications. Follow up with outpatient mental health. Encourage continued therapy in a group or individual setting. The patient was discharged to home. Referrals: [facility] [Other] [facility] [Outside] Prescriptions: Divalproex (12 HR) [Depakote (12 HR)] 250 mg PO TID #45 tablet.dr Transmission Status: Received by PHARMACY rOPINIRole [Requip] 0.5 mg PO HS #15 tablet Transmission Status: Received by PHARMACY traZODone [TraZODone] 50 mg PO HS PRN #15 tablet PRN Reason: Insomnia Transmission Status: Received by PHARMACY hydrOXYzine pamoate [Vistaril] 25 mg PO TID PRN #45 capsule PRN Reason: Anxiety Transmission Status: Received by PHARMACY Sertraline [Zoloft] 100 mg PO DAILY #15 tablet Transmission Status: Received by PHARMACY OLANZapine [Zyprexa] 5 mg PO DAILY #15 tablet Transmission Status: Received by PHARMACY Psychiatry Exam - Constitutional Vitals: Temp Pulse Resp BP Pulse Ox 98.1 F 90 16 112/73 98 11/01/18 09:00 11/01/18 09:00 11/01/18 09:00 11/01/18 09:00 11/01/18 09:00 General appearance: age & developmentally appropriate, well-groomed, well- nourished - Musculoskeletal Gait: normal Station: relaxed Strength & Tone: normal for patient - Psychiatric Patient Orientation: Yes Person, Yes Time, Yes Place, Yes Circumstance Level of alertness: Alert Behavior: calm, cooperative Psychomotor activity: Normal Eye Contact: Maintains Eye Contact Mood Description: Euthymic/stable Affect description: congruent with mood, full range Speech Volume: Normal Speech pattern: normal rate, normal rhythm, normal tone, fluent, spontaneous Language & Vocabulary: consistent with education Thought Process: Linear, Goal Oriented Thought Content: No Suicidal ideation, No Homicidal ideation, No Overt delusions Perceptual Disturbances: No Auditory hallucinations, No Visual hallucinations Attention Span Ability: Capable of Focused Attention Memory Description: Grossly Intact Patient Reliability: Reliable Historian Fund of knowledge: Yes abstraction ability, Yes aware of current events Intelligence Estimate: Average Judgment: Good Insight: Full
--- NOTE | 2018-11-01 10:07 | Psychiatry Progress Note ---
Date of Encounter: 11/01/18 Time of Encounter: 09:50 Subjective Interval history: Patient did not get a bed yesterday [facility]. This morning he says he may want to disco back with his mother which is fine from a safety and psychiatric standpoint. He is going to find out later today with the plan is. No suicidal or homicidal thoughts, ideations, or plans. Mood is good. Review of Systems Psychiatric: Denies: suicidal ideation, homicidal ideation, auditory hallucinations Results - Vital Signs Vital Signs: Temp Pulse Resp BP Pulse Ox 98.1 F 90 16 112/73 98 11/01/18 09:00 11/01/18 09:00 11/01/18 09:00 11/01/18 09:00 11/01/18 09:00 Assessment and Plan (1) Other stimulant abuse with stimulant-induced mood disorder Current visit: Yes Status: Acute Additional Plan: Patient will likely go to his mother's today. Continue current meds. Encourage group therapy. Risks, benefits, side effects, alternatives discussed w/pt: Yes Patient agreeable to treatment: Yes Consult Discharge Plan - Plan Instructions: Brief Psychotic Disorder (DC) Additional Instructions: Continue current medications. Follow up with outpatient mental health. Encourage continued therapy in a group or individual setting. The patient was discharged to home. Referrals: [facility] [Other] [facility] [Outside] Prescriptions: Divalproex (12 HR) [Depakote (12 HR)] 250 mg PO TID #45 tablet.dr Transmission Status: Received by [facility] rOPINIRole [Requip] 0.5 mg PO HS #15 tablet Transmission Status: Received by [facility] traZODone [TraZODone] 50 mg PO HS PRN #15 tablet PRN Reason: Insomnia Transmission Status: Received by [facility] hydrOXYzine pamoate [Vistaril] 25 mg PO TID PRN #45 capsule PRN Reason: Anxiety Transmission Status: Received by [facility] Sertraline [Zoloft] 100 mg PO DAILY #15 tablet Transmission Status: Received by [facility] OLANZapine [Zyprexa] 5 mg PO DAILY #15 tablet Transmission Status: Received by [facility] Psychiatry Exam - Constitutional Vitals: Temp Pulse Resp BP Pulse Ox 98.1 F 90 16 112/73 98 11/01/18 09:00 11/01/18 09:00 11/01/18 09:00 11/01/18 09:00 11/01/18 09:00 General appearance: age & developmentally appropriate, well-groomed, well- nourished - Musculoskeletal Gait: normal Station: relaxed Strength & Tone: normal for patient - Psychiatric Patient Orientation: Yes Person, Yes Time, Yes Place, Yes Circumstance Level of alertness: Alert Behavior: calm, cooperative Psychomotor activity: Normal Eye Contact: Maintains Eye Contact Mood Description: Euthymic/stable Patient description of mood: Good Affect description: congruent with mood, full range Speech Volume: Normal Speech pattern: normal rate, normal rhythm, normal tone, fluent, spontaneous Language & Vocabulary: consistent with education Thought Process: Linear, Goal Oriented Thought Content: No Suicidal ideation, No Homicidal ideation, No Overt delusions Perceptual Disturbances: No Auditory hallucinations, No Visual hallucinations Attention Span Ability: Capable of Focused Attention Memory Description: Grossly Intact Patient Reliability: Reliable Historian Fund of knowledge: Yes abstraction ability, Yes aware of current events Intelligence Estimate: Average Judgment: Good Insight: Full
[2018-11-01] MEDS: Neosporin OINT 15 GM TUBE TP SCH ×3 (10:10→22:54)
[2018-11-01] MEDS: Ibuprofen 800 MG TABLET PO PRN ×2 (10:12→21:50)
[2018-11-01] MEDS: rOPINIRole 0.25 MG TABLET PO SCH (21:46)
[2018-11-01] MEDS: traZODone 50 MG TABLET PO PRN (21:47)
[2018-11-01] MEDS: OLANZapine 5 MG TAB.RAPDIS PO SCH (21:47)
[2018-11-01] MEDS: hydrOXYzine pamoate 25 MG CAPSULE PO PRN (21:48)
[2018-11-01] MEDS: Nicotine 2 MG GUM BC PRN (22:09)
[2018-11-02] MEDS: Neosporin OINT 15 GM TUBE TP SCH ×3 (09:14→23:34)
--- NOTE | 2018-11-02 09:56 | Psychiatry Progress Note ---
Date of Encounter: 11/02/18 Time of Encounter: 09:50 Subjective Interval history: Patient continues to be doing very well from a mental health standpoint. He has no suicidal or homicidal thoughts, ideations, or plans. His mood is stable. He has no psychosis. His mother was unable to come pick him up yesterday because she is caring for sick relative and has no way to get down here this did upset him yesterday and he got a little irritable but did not make any threats and was not aggressive. He is taking his medication and tolerating these without problems. He is often out of his room and interacting socially appropriate with peers and staff. Review of Systems Psychiatric: Denies: suicidal ideation, homicidal ideation, auditory hallucinations Results - Vital Signs Vital Signs: Temp Pulse Resp BP Pulse Ox 98.3 F 91 16 109/72 98 11/02/18 09:00 11/02/18 09:00 11/02/18 09:00 11/02/18 09:00 11/02/18 09:00 Assessment and Plan (1) Other stimulant abuse with stimulant-induced mood disorder Current visit: Yes Status: Acute Plan: Continue hospitalization, Close observation, Suicide Precautions per unit protocol, Encourage participation in unit milieu, Group Therapy, Monitor sleep, Monitor appetite Additional Plan: Patient is clinically ready for discharge. We are just awaiting the potential for better lon. If he prefers to go home with family or friend this is also acceptable though it would clearly be preferable for him to go straight into rehabilitation so he does not risk relapse however at this point he has capacity to make this decision and if he chooses to go ahead and discharge that is also a cceptable. Risks, benefits, side effects, alternatives discussed w/pt: Yes Patient agreeable to treatment: Yes Consult Discharge Plan - Plan Instructions: Brief Psychotic Disorder (DC) Additional Instructions: Continue current medications. Follow up with outpatient mental health. Encourage continued therapy in a group or individual setting. The patient was discharged to home. Referrals: [facility] [Other] [facility] [Outside] Prescriptions: Divalproex (12 HR) [Depakote (12 HR)] 250 mg PO TID #45 tablet. Transmission Status: Received by [facility] rOPINIRole [Requip] 0.5 mg PO HS #15 tablet Transmission Status: Received by [facility] traZODone [TraZODone] 50 mg PO HS PRN #15 tablet PRN Reason: Insomnia Transmission Status: Received by [facility] hydrOXYzine pamoate [Vistaril] 25 mg PO TID PRN #45 capsule PRN Reason: Anxiety Transmission Status: Received by [facility] Sertraline [Zoloft] 100 mg PO DAILY #15 tablet Transmission Status: Received by [facility] OLANZapine [Zyprexa] 5 mg PO DAILY #15 tablet Transmission Status: Received by [facility] Psychiatry Exam - Constitutional Vitals: Temp Pulse Resp BP Pulse Ox 98.3 F 91 16 109/72 98 11/02/18 09:00 11/02/18 09:00 11/02/18 09:00 11/02/18 09:00 11/02/18 09:00 General appearance: age & developmentally appropriate, well-groomed, well- nourished - Musculoskeletal Gait: normal Station: relaxed Strength & Tone: normal for patient - Psychiatric Patient Orientation: Yes Person, Yes Time, Yes Place, Yes Circumstance Level of alertness: Alert Behavior: calm, cooperative Psychomotor activity: Normal Eye Contact: Maintains Eye Contact Mood Description: Euthymic/stable Patient description of mood: Good Affect description: congruent with mood, full range Speech Volume: Normal Speech pattern: normal rate, normal rhythm, normal tone, fluent, spontaneous Language & Vocabulary: consistent with education Thought Process: Linear, Goal Oriented Thought Content: No Suicidal ideation, No Homicidal ideation, No Overt delusions Perceptual Disturbances: No Auditory hallucinations, No Visual hallucinations Attention Span Ability: Capable of Focused Attention Memory Description: Grossly Intact Patient Reliability: Reliable Historian Fund of knowledge: Yes abstraction ability, Yes aware of current events Intelligence Estimate: Average Judgment: Good Insight: Full
[2018-11-02] MEDS: Ibuprofen 800 MG TABLET PO PRN ×2 (12:30→22:00)
[2018-11-02] MEDS: Nicotine 2 MG GUM BC PRN ×2 (14:29→21:19)
[2018-11-02] MEDS: OLANZapine 5 MG TAB.RAPDIS PO SCH (21:53)
[2018-11-02] MEDS: rOPINIRole 0.25 MG TABLET PO SCH (21:55)
[2018-11-02] MEDS: traZODone 50 MG TABLET PO PRN (21:56)
[2018-11-02] MEDS: hydrOXYzine pamoate 25 MG CAPSULE PO PRN (21:56)
[2018-11-03] MEDS: Neosporin OINT 15 GM TUBE TP SCH ×3 (08:58→20:29)
--- NOTE | 2018-11-03 10:52 | Psychiatry Progress Note ---
Date of Encounter: 11/03/18 Time of Encounter: 09:10 Subjective Interval history: Patient continues to be doing well. Mood is stable. No suicidal or homicidal thoughts, ideations, or plans. He is future oriented. He is tolerating medications. We are waiting for rehabilitation bed. Review of Systems Psychiatric: Denies: suicidal ideation, homicidal ideation, auditory hallucinations Results - Vital Signs Vital Signs: Temp Pulse Resp BP Pulse Ox 97.3 F L 77 16 112/73 99 11/03/18 09:00 11/03/18 09:00 11/03/18 09:00 11/03/18 09:00 11/03/18 09:00 Assessment and Plan (1) Other stimulant abuse with stimulant-induced mood disorder Current visit: Yes Status: Acute Plan: Continue hospitalization, Close observation, Suicide Precautions per unit protocol, Encourage participation in unit milieu, Group Therapy, Monitor sleep, Monitor appetite Additional Plan: [facility] says they will have a bed for him when stay. The patient thinks he may choose to leave before that which he can do from a medical standpoint as he is stable. He says there are some things he needs to take care of before he checks himself in. Risks, benefits, side effects, alternatives discussed w/pt: Yes Patient agreeable to treatment: Yes Consult Discharge Plan - Plan Instructions: Brief Psychotic Disorder (DC) Additional Instructions: Continue current medications. Follow up with outpatient mental health. Encourage continued therapy in a group or individual setting. The patient was discharged to home. Referrals: [facility] [Other] [facility] [Outside] Prescriptions: Divalproex (12 HR) [Depakote (12 HR)] 250 mg PO TID #45 tablet.dr Transmission Status: Received by [facility] rOPINIRole [Requip] 0.5 mg PO HS #15 tablet Transmission Status: Received by [facility] traZODone [TraZODone] 50 mg PO HS PRN #15 tablet PRN Reason: Insomnia Transmission Status: Received by [facility] hydrOXYzine pamoate [Vistaril] 25 mg PO TID PRN #45 capsule PRN Reason: Anxiety Transmission Status: Received by [facility] Sertraline [Zoloft] 100 mg PO DAILY #15 tablet Transmission Status: Received by [facility] OLANZapine [Zyprexa] 5 mg PO DAILY #15 tablet Transmission Status: Received by [facility] Psychiatry Exam - Constitutional Vitals: Temp Pulse Resp BP Pulse Ox 97.3 F L 77 16 112/73 99 11/03/18 09:00 11/03/18 09:00 11/03/18 09:00 11/03/18 09:00 11/03/18 09:00 General appearance: age & developmentally appropriate, well-groomed, well- nourished - Musculoskeletal Gait: normal Station: relaxed Strength & Tone: normal for patient - Psychiatric Patient Orientation: Yes Person, Yes Time, Yes Place, Yes Circumstance Level of alertness: Alert Behavior: calm, cooperative Psychomotor activity: Normal Eye Contact: Maintains Eye Contact Mood Description: Euthymic/stable Patient description of mood: Good Affect description: congruent with mood, full range Speech Volume: Normal Speech pattern: normal rate, normal rhythm, normal tone, fluent, spontaneous Language & Vocabulary: consistent with education Thought Process: Linear, Goal Oriented Thought Content: No Suicidal ideation, No Homicidal ideation, No Overt delusions Perceptual Disturbances: No Auditory hallucinations, No Visual hallucinations Attention Span Ability: Capable of Focused Attention Memory Description: Grossly Intact Patient Reliability: Reliable Historian Fund of knowledge: Yes abstraction ability, Yes aware of current events Intelligence Estimate: Average Judgment: Good Insight: Full
[2018-11-03] MEDS: Nicotine 2 MG GUM BC PRN ×2 (17:51→23:12)
[2018-11-03] MEDS: Ibuprofen 800 MG TABLET PO PRN (17:51)
[2018-11-03] MEDS: hydrOXYzine pamoate 25 MG CAPSULE PO PRN (19:10)
[2018-11-03] MEDS: rOPINIRole 0.25 MG TABLET PO SCH (20:28)
[2018-11-03] MEDS: traZODone 50 MG TABLET PO PRN (20:28)
[2018-11-03] MEDS: OLANZapine 5 MG TAB.RAPDIS PO SCH (20:28)
[2018-11-04] MEDS: Ibuprofen 800 MG TABLET PO PRN ×2 (09:30→17:33)
[2018-11-04] MEDS: Nicotine 2 MG GUM BC PRN ×4 (09:31→21:42)
[2018-11-04] MEDS: Neosporin OINT 15 GM TUBE TP SCH ×3 (09:32→22:27)
--- NOTE | 2018-11-04 11:45 | Psychiatry Progress Note ---
Date of Encounter: 11/04/18 Time of Encounter: 10:20 Subjective Interval history: Patient continues to be stable just awaiting placement at a rehabilitation facility. He did report the Vistaril is making him tired when he takes for anxiety so asked for something else so that when he gets into a rehabilitation facility if he has any anxiety he will not be overly sedated and will be able to participate in groups. We discussed BuSpar. Review of Systems Psychiatric: Reports: anxiety. Denies: suicidal ideation, homicidal ideation, auditory hallucinations Results - Vital Signs Vital Signs: Temp Pulse Resp BP Pulse Ox 98.2 F 87 16 112/77 98 11/04/18 09:00 11/04/18 09:00 11/04/18 09:00 11/04/18 09:00 11/04/18 09:00 Assessment and Plan (1) Other stimulant abuse with stimulant-induced mood disorder Current visit: Yes Status: Acute Plan: Encourage participation in unit milieu, Group Therapy, Monitor sleep, Monitor appetite Additional Plan: I had BuSpar 7.5 twice a day. Encourage group attendance. Should have a better Center tomorrow. Risks, benefits, side effects, alternatives discussed w/pt: Yes Patient agreeable to treatment: Yes Consult Discharge Plan - Plan Instructions: Brief Psychotic Disorder (DC), Methamphetamine Abuse (DC) Additional Instructions: Continue current medications. Follow up with outpatient mental health. Encourage continued therapy in a group or individual setting. The patient was discharged to home. Referrals: [facility] [Other] [facility] [Outside] Prescriptions: Divalproex (12 HR) [Depakote (12 HR)] 250 mg PO TID #45 tablet.dr Transmission Status: Received by [facility] rOPINIRole [Requip] 0.5 mg PO HS #15 tablet Transmission Status: Received by [facility] traZODone [TraZODone] 50 mg PO HS PRN #15 tablet PRN Reason: Insomnia Transmission Status: Received by [facility] hydrOXYzine pamoate [Vistaril] 25 mg PO TID PRN #45 capsule PRN Reason: Anxiety Transmission Status: Received by [facility] Sertraline [Zoloft] 100 mg PO DAILY #15 tablet Transmission Status: Received by [facility] OLANZapine [Zyprexa] 5 mg PO DAILY #15 tablet Transmission Status: Received by [facility] Psychiatry Exam - Constitutional Vitals: Temp Pulse Resp BP Pulse Ox 98.2 F 87 16 112/77 98 11/04/18 09:00 11/04/18 09:00 11/04/18 09:00 11/04/18 09:00 11/04/18 09:00 General appearance: age & developmentally appropriate, well-groomed, well- nourished - Musculoskeletal Gait: normal Station: relaxed Strength & Tone: normal for patient - Psychiatric Patient Orientation: Yes Person, Yes Time, Yes Place, Yes Circumstance Level of alertness: Alert Behavior: calm, cooperative Psychomotor activity: Normal Eye Contact: Maintains Eye Contact Mood Description: Euthymic/stable Patient description of mood: Good Affect description: congruent with mood, full range Speech Volume: Normal Speech pattern: normal rate, normal rhythm, normal tone, fluent, spontaneous Language & Vocabulary: consistent with education Thought Process: Linear, Goal Oriented Thought Content: No Suicidal ideation, No Homicidal ideation, No Overt delusions Perceptual Disturbances: No Auditory hallucinations, No Visual hallucinations Attention Span Ability: Capable of Focused Attention Memory Description: Grossly Intact Patient Reliability: Reliable Historian Fund of knowledge: Yes abstraction ability, Yes aware of current events Intelligence Estimate: Average Judgment: Good Insight: Full
[2018-11-04] MEDS: OLANZapine 5 MG TAB.RAPDIS PO SCH (21:08)
[2018-11-04] MEDS: hydrOXYzine pamoate 25 MG CAPSULE PO PRN (21:08)
[2018-11-04] MEDS: rOPINIRole 0.25 MG TABLET PO SCH (21:08)
[2018-11-04] MEDS: traZODone 50 MG TABLET PO PRN (21:08)
--- NOTE | 2018-11-05 08:04 | Discharge Summary ---
Date of Encounter: 11/05/18 Time of Encounter: 08:20 Diagnosis - Discharge Diagnosis (1) Other stimulant abuse with stimulant-induced mood disorder Status: Acute Medications - Discharge Medications Prescriptions: Divalproex (12 HR) [Depakote (12 HR)] 250 mg PO TID #45 tablet. Transmission Status: Received by [facility] rOPINIRole [Requip] 0.5 mg PO HS #15 tablet Transmission Status: Received by [facility] traZODone [TraZODone] 50 mg PO HS PRN #15 tablet PRN Reason: Insomnia Transmission Status: Received by [facility] hydrOXYzine pamoate [Vistaril] 25 mg PO TID PRN #45 capsule PRN Reason: Anxiety Transmission Status: Received by [facility] Sertraline [Zoloft] 100 mg PO DAILY #15 tablet Transmission Status: Received by [facility] OLANZapine [Zyprexa] 5 mg PO DAILY #15 tablet Transmission Status: Received by [facility] Cholecalciferol (Vitamin D3) [Vitamin D3] 1,000 units PO DAILY 10/23/18 [History] Ibuprofen 800 mg PO TID PRN 10/23/18 [History] Divalproex (12 HR) [Depakote (12 HR)] 250 mg PO TID #45 tablet. 10/31/18 [Rx] Luis Enrique/Poly/Tammy OINT [Triple Antibiotic Ointment] 1 appl TP TID tube 10/31/18 [Rx] OLANZapine [Zyprexa] 5 mg PO DAILY #15 tablet 10/31/18 [Rx] Sertraline [Zoloft] 100 mg PO DAILY #15 tablet 10/31/18 [Rx] hydrOXYzine pamoate [Vistaril] 25 mg PO TID PRN #45 capsule 10/31/18 [Rx] rOPINIRole [Requip] 0.5 mg PO HS #15 tablet 10/31/18 [Rx] traZODone [TraZODone] 50 mg PO HS PRN #15 tablet 10/31/18 [Rx] Allergy/AdvReac Type Severity Reaction Status Date / Time No Known Allergies Allergy Verified 10/23/18 19:58 Results Procedures and tests throughout hospitalization: Completed Lab Orders Category Date Time Status Acetaminophen Stat Lab 10/23/18 16:09 Completed Basic Metabolic Panel Stat Lab 10/23/18 16:09 Completed Complete Blood Count [HEME] Stat Lab 10/23/18 16:09 Completed Drug Screen, Urine [UCHEM] Stat Lab 10/23/18 16:28 Completed Ethanol Stat Lab 10/23/18 16:09 Completed Salicylate Stat Lab 10/23/18 16:09 Completed Urinalysis reflex Microscopic [URIN] Stat Lab 10/23/18 16:28 Completed Viral hepatitis panel [Hepatitis Prof.(Routine A,B,C)] Lab 10/30/18 15:26 C ompleted Stat Provider Date of admission: 10/23/18 17:33 Primary care physician: PCP NONE Discharging clinician: Teri Arguelles Psychiatry Exam - Constitutional Vitals: Temp Pulse Resp BP Pulse Ox 98.6 F 97 16 117/73 98 11/04/18 21:00 11/04/18 21:00 11/04/18 21:00 11/04/18 21:00 11/04/18 21:00 General appearance: age & developmentally appropriate, well-groomed, well-marycruz shed - Musculoskeletal Gait: normal Station: relaxed Strength & Tone: normal for patient - Psychiatric Patient Orientation: Yes Person, Yes Time, Yes Place, Yes Circumstance Level of alertness: Alert Behavior: calm, cooperative Psychomotor activity: Normal Eye Contact: Maintains Eye Contact Mood Description: Euthymic/stable Patient description of mood: Good Affect description: congruent with mood, full range Speech Volume: Normal Speech pattern: normal rate, normal rhythm, normal tone, fluent, spontaneous Language & Vocabulary: consistent with education Thought Process: Linear, Goal Oriented Thought Content: No Suicidal ideation, No Homicidal ideation, No Overt delusions Perceptual Disturbances: No Auditory hallucinations, No Visual hallucinations Attention Span Ability: Capable of Focused Attention Memory Description: Grossly Intact Patient Reliability: Reliable Historian Fund of knowledge: Yes abstraction ability, Yes aware of current events Intelligence Estimate: Average Judgment: Good Insight: Full Hospital Course Hospital course: Mr. Lee is a 43 year old male who was admitted for depression and suicidal ideations. He also had some mood lability. He was started back on his Zyprexa and Depakote. We had to wait quite a while for a bed at the [facility]. Patient was educated of diagnosis and the risk-benefit side effects of this alternative treatment options and was monitored for responsiveness and side effects. Mood anxiety sleep and appetite interest improved as did future tana entation. Self-harm thoughts subsided, thinking cleared, psychosis resolved, and mood stabilized. Patient was able to attend both individual and group therapy sessions as well as meet with the psychiatrist daily and urged to discuss any medication or treatment issues or other concerns. The patient was educated primarily by verbal means about their diagnosis and manifestations in their life. The option for treatment including group and individual therapy programming was offered to the patient in addition to the use of medications with all their potential risks, benefits, and side effects as well as the risks of not taking medication and non-adhereance were discussed with the patient at length. The patient was given the opportunity to ask questions and was noted to participate in the treatment in the planning process. The patient felt ready and eager to be discharged from the inpatient psychiatric unit to continue on with treatment as an outpatient. The patient agreed that is they were safe for this disposition. The patient was considered to be able to participate in informed consent and decision making with respect to medical, legal, and financial issues of the time of discharge. At the time of discharge the patient adamantly denied any concerns for lethality including suicidal or homicidal thoughts ideations or plans and was future oriented toward ongoing mental health care, medical follow-up and sobriety. Time spent discussing smoking cessation with patient: 3 to 10 minutes Does patient wish to continue nicotine replacement upon disc: No - Time Spent with Patient Total time spent providing and/or coordinating discharge services: 20 Less than 30 minutes Specific discharge activities: Interval history reviewed. Available labs reviewed . Psychotherapy provided. Patient had an opportunity to ask questions and address concerns. Patient was in agreement with the treatment plan. The risks benefits and side effects of medications were discussed with the patient, including alternatives and treatment. The patient was educated on the abstaining from any alcohol or illicit substances, following up with all scheduled appointments, and taking all medications as prescribed. The patient was educated on 90 meetings in 90 days and to find a sponsor. Assessment and Plan - Patient/Caregiver Discharge Instructions Activity: resume usual activities as tolerated Diet: regular diet Additional Instructions: Continue current medications. Follow up with outpatient mental health. Encourage continued therapy in a group or individual setting. The patient was discharged to home. - Follow up Plan Follow up with: [facility] [Other] [facility] [Outside] Functional capacity at discharge: independent ambulation Overall status at discharge: Stable Disposition: Home, Self-Care Quality - Multiple Antipsychotics Patient discharged on 2 or more antipsychotic medications: No Procedures - Procedures Procedures: Medication Management, Crisis Stabilization, Supportive Therapy, Group Therapy, Psychoeducational Therapy
[2018-11-05] MEDS: Ibuprofen 800 MG TABLET PO PRN (08:40)
[2018-11-05] MEDS: Nicotine 2 MG GUM BC PRN (08:41)
[2018-11-05] MEDS: Neosporin OINT 15 GM TUBE TP SCH (08:43)
[2018-11-05 09:40] VITALS: BP 102/75
== END 2018-11-05 09:05 | disposition home or self-care (01) | DRG 776 ==
LOC: EMEROOARM 15:27 → 1ANU 17:33 → SUATTDRO 17:33 → 1ANU 19:06
PROVIDERS: ADMIT Psychiatry & Neurology Psychiatry; ATTEND Psychiatry & Neurology Psychiatry